=== PATIENT | female | born 1990 | race African-American/Black ===

== ENCOUNTER 2017-01-15 12:29 | Emergency (ER) | payer OTHER ==
[~2017-01-15] VITALS: Ht 160 cm; Wt 63.0 kg
[2017-01-15 12:30] VITALS: BP 135/85; PULSE 76; RESP 15; TEMP 98.3; O2SAT 98
== END 2017-01-15 13:43 | disposition left against medical advice (07) ==
LOC: NED 12:29
DX: Z53.21 Procedure and treatment not carried out due to patient leaving prior to being seen by health care provider (principal)
CPT/HCPCS: 99281

== ENCOUNTER 2017-02-24 08:07 | Emergency (ER) | payer OTHER ==
[2017-02-24 08:08] VITALS: BP 119/73; PULSE 104; RESP 16; TEMP 98.9; O2SAT 94
[2017-02-24] MEDS ORDERED: [UNRECOGNIZED DRUG - REMARK] (09:02)
[2017-02-24] MEDS ORDERED: RESP: ALBUTEROL 2.5 MG/IPRATROPIUM 0.5 MG NEB (SCH) INH ONE (09:15)
--- NOTE | 2017-02-24 09:17 | PD ---
HPI Chief Complaint: Cold / Flu Symptoms Time Seen by Provider: 09:04 Travel History International Travel<30 days: No Contact w/Intl Traveler<30days: No Traveled to known affect area: No History of Present Illness HPI 26-year-old female complains of body ache, coughing, wheezing, fever. Patient is HIV positive and on medication for that. Patient states that she started having productive cough for the past 2 days. Patient states that she had fever yesterday. Patient has history of asthma and has been wheezing for the past 2 days. Patient has been using albuterol inhaler. Patient does not know her CD4 count or viral load. Patient denies any nausea vomiting diarrhea. PFSH Past Medical History Autoimmune Disease: Yes (HIV+) ?: Not LMP: last week Social History Alcohol Use: Yes Tobacco Use: No Substance Use: No Allergies-Medications (Allergen,Severity, Reaction): Coded Allergies: No Known Allergies (Unverified , 02/24/17) Reported Meds & Prescriptions Reported Meds & Active Scripts Active Reported [Unk Hiv Meds] DAILY Review of Systems General / Constitutional: No: Fever Eyes: No: Visual changes HENT: Positive: Congestion, No: Headaches Cardiovascular: No: Chest Pain or Discomfort Respiratory: Positive: Cough, Wheezing, No: Shortness of Breath Gastrointestinal: No: Abdominal Pain Genitourinary: No: Dysuria Musculoskeletal: No: Pain Skin: No Rash Neurologic: No: Weakness Psychiatric: No: Depression Endocrine: No: Polydipsia Hematologic/Lymphatic: No: Easy Bruising Physical Exam Narrative . GENERAL: Well-nourished, well-developed patient. SKIN: Focused skin assessment warm/dry. HEAD: Normocephalic. EYES: No scleral icterus. No injection or drainage. Throat: Nonerythematous. NECK: Supple, trachea midline. No JVD or lymphadenopathy. CARDIOVASCULAR: Regular rate and rhythm without murmurs, gallops, or rubs. RESPIRATORY: Breath sounds equal bilaterally. No accessory muscle use. Patient has mild to moderate expiratory wheezes bilaterally. Few rhonchi bilaterally GASTROINTESTINAL: Abdomen soft, non-tender, nondistended. MUSCULOSKELETAL: No cyanosis, or edema. BACK: Nontender without obvious deformity. No CVA tenderness. Data Data Last Documented VS Vital Signs Date Time Temp Pulse Resp B/P (MAP) Pulse Ox O2 Delivery O2 Flow Rate FiO2 02/24/17 08:14 (88) 02/24/17 08:08 98.9 104 16 94 Room Air Orders Orders Complete Blood Count With Diff (02/24/17 09:11) Basic Metabolic Panel (Bmp) (02/24/17 09:11) Chest, Single Ap (02/24/17 09:11) Iv Access Insert/Monitor (02/24/17 09:11) Influenzae A/B Antigen (02/24/17 09:11) Albuterol-Ipratropium Neb (Duoneb Neb) (02/24/17 09:15) Labs Laboratory Tests Test 02/24/17 09:20 White Blood Count 7.2 TH/MM3 Red Blood Count 4.24 MIL/MM3 Hemoglobin 11.9 GM/DL Hematocrit 36.7 % Mean Corpuscular Volume 86.5 FL Mean Corpuscular Hemoglobin 28.2 PG Mean Corpuscular Hemoglobin Concent 32.5 % Red Cell Distribution Width 14.5 % Platelet Count 184 TH/MM3 Mean Platelet Volume 8.7 FL Neutrophils (%) (Auto) 64.2 % Lymphocytes (%) (Auto) 23.4 % Monocytes (%) (Auto) 10.4 % Eosinophils (%) (Auto) 1.8 % Basophils (%) (Auto) 0.2 % Neutrophils # (Auto) 4.6 TH/MM3 Lymphocytes # (Auto) 1.7 TH/MM3 Monocytes # (Auto) 0.7 TH/MM3 Eosinophils # (Auto) 0.1 TH/MM3 Basophils # (Auto) 0.0 TH/MM3 CBC Comment DIFF FINAL Differential Comment Blood Urea Nitrogen 10 MG/DL Creatinine 0.78 MG/DL Random Glucose 76 MG/DL Calcium Level 9.1 MG/DL Sodium Level 136 MEQ/L Potassium Level 3.7 MEQ/L Chloride Level 103 MEQ/L Carbon Dioxide Level 25.1 MEQ/L Anion Gap 8 MEQ/L Estimat Glomerular Filtration Rate 107 ML/MIN [facility] Medical Decision Making Medical Screen Exam Complete: Yes Emergency Medical Condition: Yes Interpretation(s) 10:31 AM. Chest x-ray shows subtle area consolidation right suprahilar region. CBC within normal limit. Normal differential. BMP within normal limit. Differential Diagnosis Differential diagnosis including acute exacerbation of asthma, bronchitis, pneumonia. Narrative Course 26-year-old female with coughing wheezing. History of HIV positive. Albuterol with Atrovent unit dose treatment 1. Levaquin 750 mg by mouth given. Diagnosis Primary Impression: Pneumonia Qualified Codes: J18.1 - Lobar pneumonia, unspecified organism Additional Impression: Acute asthma exacerbation Qualified Codes: J45.31 - Mild persistent asthma with (acute) exacerbation Patient Instructions: General Instructions Additional Instructions: Take medications as directed. Albuterol treatment as directed. Follow-up with personal physician. Return if worse. Med/Other Pt SpecificInfo: Prescription(s) given Scripts Ipratropium Neb (Ipratropium Neb) 0.5 Mg/2.5 Ml Amp 0.5 MG NEB Q4HR NEB Y for SHORTNESS OF BREATH, #60 NEBULE 0 Refills Prov: Alejandro Bolden MD 02/24/17 Albuterol Neb (Albuterol Neb) 2.5 Mg/3 Ml Neb 2.5 MG NEB Q4HR NEB for Breathing Treatment, #60 NEBULE 0 Refills While awake Prov: Alejandro Bolden MD 02/24/17 Levofloxacin (Levaquin) 750 Mg Tablet 750 MG PO DAILY for Infection, #10 TAB 0 Refills Prov: Alejandro Bolden MD 02/24/17 Disposition: 01 DISCHARGE HOME Condition: Stable Alejandro Bolden MD Feb 24, 2017 09:17
[2017-02-24 09:46] LABS: AUTOMATED NEUTROPHIL # 4.6 TH/MM3 (1.8-7.7); BASOPHIL % 0.2 % (0.0-2.0); EOSINOPHIL # 0.1 TH/MM3 (0-0.4); EOSINOPHIL % 1.8 % (0.0-4.0); HEMATOCRIT 36.7 % (35.0-46.0); HEMO FLAGS DIFF FINAL; LYMPH % 23.4 % (9.0-44.0); LYMPHOCYTE # 1.7 TH/MM3 (1.0-4.8); MEAN CELL VOLUME 86.5 FL (80.0-100.0); MEAN CORPUSCULAR HEMOGLOBIN 28.2 PG (27.0-34.0); MEAN CORPUSCULAR HGB CONC 32.5 % (32.0-36.0); MONO % 10.4 % (0.0-8.0); NEUT % 64.2 % (16.0-70.0); PLATELET COUNT 184 TH/MM3 (150-450); RED BLOOD COUNT 4.24 MIL/MM3 (4.00-5.30); RED CELL DISTRIBUTION WIDTH 14.5 % (11.6-17.2); WHITE BLOOD COUNT 7.2 TH/MM3 (4.0-11.0)
--- NOTE | 2017-02-24 09:50 | RADRPT ---
EXAM DATE/TIME: 02/24/2017 09:25 [facility] COMPARISON: No previous studies available for comparison. INDICATIONS : Asthma, wheezing with shortness of breath. MEDICAL HISTORY : Venous insufficiency. Asthma SURGICAL HISTORY : None. ENCOUNTER: Initial ACUITY: 2 days PAIN SCORE: 0/10 LOCATION: Bilateral chest FINDINGS: The heart is normal in size. The mediastinal contours are within normal limits. The exam demonstrates a subtle area of perihilar infiltrate on the right. This would suggest either a small area of consol idation or pneumonia. There is no pleural effusion. The osseous structures are intact. CONCLUSION: 1. Subtle area of consolidation in the right suprahilar region. Boubacar Nash MD on February 24, 2017 at 9:47 Board Certified Radiologist. This report was verified electronically.
[2017-02-24 09:58] LABS: BICARBONATE 25.1 MEQ/L (21.0-32.0); POTASSIUM 3.7 MEQ/L (3.5-5.1)
[2017-02-24] MEDS ORDERED: LEVA750T9 PO (10:38)
[2017-02-24] MEDS ORDERED: ALBU0.08 NEB (10:39)
[2017-02-24] MEDS ORDERED: IPRA0.02 NEB (10:39)
[2017-02-24] MEDS ORDERED: LEVOFLOXACIN 750 MG TAB PO ONE (10:45)
--- NOTE | 2017-02-24 13:58 | EKG ---
Date Performed: 02/24/2017 Time Performed: 08:24:10 PTAGE: 26 years EKG: Sinus rhythm POSSIBLE LEFT ATRIAL ENLARGEMENT NONSPECIFIC T-WAVE ABNORMALITY BORDERLINE ECG NO PREVIOUS TRACING DOCTOR: Carter Quinonez Interpretating Date/Time 02/24/2017 13:57:04
== END 2017-02-24 10:58 | disposition home or self-care (01) ==
LOC: NEPD 08:07
DX: J18.1 Lobar pneumonia, unspecified organism (principal); J45.31 Mild persistent asthma with (acute) exacerbation; R94.31 Abnormal electrocardiogram [ECG] [EKG]; B20 Human immunodeficiency virus [HIV] disease
CPT/HCPCS: 71010; 80048; 85025; 87804; 93005; 94664; 99284